=== PATIENT | male | born 1970 | race American Indian/Alaskan Native ===

== ENCOUNTER 2018-04-13 17:15 | Emergency (ER) | payer SELFPAY ==
[2018-04-13 17:23] VITALS: BP 145/99
[2018-04-13] MEDS ORDERED: VIBRAMYCIN PO ONE (18:15)
--- NOTE | 2018-04-13 18:22 | Emergency Department Report ---
- General Chief Complaint: Upper Respiratory Infection Stated Complaint: BAD COUGHING Time Seen by Provider: 04/13/18 17:38 Source: patient Mode of arrival: Ambulatory Limitations: No Limitations - History of Present Illness Initial Comments: Extremities a pleasant 47-year-old male with history of tobacco piece. He's had 4 weeks of productive cough with white sputum. He desires chest x-ray to make sure it does not have cancer. Denies fever. no dyspnea. Denies any pain. History of bipolar affective disorder. No current suicidal homicidal ideation. MD Complaint: cough -: month(s) (1) Severity: mild - Related Data Previous Rx's Medication Instructions Recorded Last Taken Type Doxycycline Hyclate [Doxycycline 100 mg PO Q12HR 10 Days #20 tab 04/13/18 Unknown Rx Hyclate TAB] Allergies Allergy/AdvReac Type Severity Reaction Status Date / Time olanzapine [From Zyprexa] AdvReac Unknown Verified 04/13/18 17:20 ED Review of Systems ROS: Stated complaint: BAD COUGHING Other details as noted in HPI Constitutional: denies: fever, malaise ENT: denies: throat pain Respiratory: cough Cardiovascular: denies: chest pain Gastrointestinal: denies: abdominal pain ED Past Medical Hx - Past Medical History Hx Hypertension: Yes Hx Psychiatric Treatment: Yes (bipolar) - Social History Smoking Status: Current Every Day Smoker Substance Use Type: None - Medications Home Medications: Home Medications Medication Instructions Recorded Confirmed Last Taken Type Doxycycline Hyclate [Doxycycline 100 mg PO Q12HR 10 Days #20 tab 04/13/18 Unknown Rx Hyclate TAB] ED Physical Exam - General Limitations: No Limitations General appearance: alert, in no apparent distress - Head Head exam: Present: atraumatic, normocephalic - Eye Eye exam: Present: normal appearance - ENT ENT exam: Present: mucous membranes moist - Neck Neck exam: Present: normal inspection - Respiratory Respiratory exam: Present: normal lung sounds bilaterally. Absent: respiratory distress, wheezes, rales, rhonchi - Cardiovascular Cardiovascular Exam: Present: regular rate, normal rhythm, normal heart sounds. Absent: systolic murmur, diastolic murmur, rubs, gallop - GI/Abdominal GI/Abdominal exam: Present: soft, normal bowel sounds - Rectal Rectal exam: Present: deferred - Extremities Exam Extremities exam: Present: normal inspection - Back Exam Back exam: Present: normal inspection - Neurological Exam Neurological exam: Present: alert, oriented X3 - Psychiatric Psychiatric exam: Present: normal affect, normal mood - Skin Skin exam: Present: warm, dry, intact, normal color. Absent: rash ED Course Vital Signs 04/13/18 17:20 Temperature 98.7 F Pulse Rate 86 Respiratory 18 Rate Blood Pressure 145/99 O2 Sat by Pulse 100 Oximetry ED Medical Decision Making - Radiology Data interpreted by me: I reviewed and interpreted chest x-ray imaging. 2 views of the tests obtained. PA and lateral view. No pneumothorax. Normal size cardiac silhouette. No infiltrate. No bony abnormality. No lung nodule. - Medical Decision Making Mr. Salgado is a very pleasant gentleman who presents with Productive cough for 4 weeks, with history of tobacco abuser, antibiotic indicated in this case of acute bronchitis, doxycycline prescribed. Critical care attestation.: If time is entered above; I have spent that time in minutes in the direct care of this critically ill patient, excluding procedure time. ED Disposition Clinical Impression: Acute bronchitis Disposition: DC-01 TO HOME OR SELFCARE Is pt being admited?: No Does the pt Need Aspirin: No Condition: Stable Instructions: Acute Bronchitis (ED) Prescriptions: Doxycycline Hyclate [Doxycycline Hyclate TAB] 100 mg PO Q12HR 10 Days #20 tab Referrals: PRIMARY CARE, [Primary Care Provider] - 3-5 Days Time of Disposition: 18:23
--- NOTE | 2018-04-13 18:58 | XRay Report ---
FINAL REPORT EXAM: XR CHEST ROUTINE 2V HISTORY: cough 4 weeks, smoker TECHNIQUE: PA and lateral views of the chest PRIORS: None. FINDINGS: Lines, tubes, and devices: N/A Lungs and pleura: Trachea is normal in position. Lungs are clear of infiltrate, pleural effusion, vascular congestion, or pneumothorax. Cardiomediastinal silhouette: Cardiac and mediastinal silhouettes are unremarkable. Other: Bony structures demonstrate calcification of the anterior longitudinal ligament in the lower thoracic spine related to DISH. IMPRESSION: No acute cardiopulmonary process seen.
== END 2018-04-13 19:55 | disposition home or self-care (01) ==
LOC: ED 17:15
DX: J20.9 Acute bronchitis, unspecified (principal); I10 Essential (primary) hypertension; F31.9 Bipolar disorder, unspecified; F17.200 Nicotine dependence, unspecified, uncomplicated; Z88.8 Allergy status to other drugs, medicaments and biological substances
CPT/HCPCS: 71046; 99283